=== PATIENT | male | born 1980 | race Caucasian/White ===

== ENCOUNTER 2017-12-29 09:31 | Emergency (ER) | payer OTHER, BC ==
[~2017-12-29] VITALS: Ht 175.3 cm; Wt 100.0 kg
[~2017-12-29 09:31] MED LIST: AMOXICILLIN875 MG PO; ANTIVERT PO; BENTYL10 MG PO; BLOOD PRESSURE MED; CIPROFLOXACN500 MG PO; DEPO-MEDROL80 MG/ML IM; FLEXERIL PO; FLEXERIL10 MG PO; FLEXERIL5 MG PO; IBUPROFEN800 MG PO; MEDDOSEPAK OR; MELOXICAM15 MG PO; MOTRIN800 MG/TAB PO; NAPROSYN500 MG OR; NAPROXEN DR500 MG PO; NAPROXEN250 MG PO; NAPROXEN500 MG PO; NO; PERCOCET1 TA2 PO; PREDNISONE10 MG PO; SOLU-MEDROL125 MG IM; VICODIN1 TAB OR; ZITHROMAX500 MG PO; ZOFRAN ODT8 MG PO; ZPAK OR
[2017-12-29] MEDS ORDERED: ASPERCREME LIDOCA41 TOP (10:38)
[2017-12-29] MEDS ORDERED: MOTRIN400 MG PO (10:38)
[2017-12-29] MEDS ORDERED: CYCLOBENZAPRINE5 MG PO (10:38)
[2017-12-29 10:40] VITALS: BP 125/68
== END 2017-12-29 10:55 | disposition home or self-care (01) | DRG 552 ==
LOC: ED 09:31
DX: M54.5 Low back pain (principal)